=== PATIENT | female | born 2000 | race Caucasian/White ===

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

== ENCOUNTER → 2018-01-31 | Outpatient (CLI) | payer OTHER ==
[2018-01-31 14:59] LABS: HCT 40.2 % (34.0-46.0); MCH 31.2 pg (25.0-35.0); MCHC 34.8 g/dL (31.0-37.0); MCV 89.7 fL (80.0-100.0); Mean Platelet Volume 6.7; Platelet Count 260 k/uL (150-450); RBC 4.48 m/uL (3.80-5.40); RDW 12.7 % (11.5-15.5); WBC 8.6 k/uL (4.0-11.0)
[2018-01-31 15:17] LABS: ALT 30 U/L (9-52); AST 24 U/L (14-36); Albumin 4.7 g/dL (3.5-5.0); Alkaline Phosphatase 34 U/L (38-126); Amylase 57 U/L (30-110); Anion Gap 13 mmol/L; Blood Urea Nitrogen 9 mg/dL (7-17); Calcium 9.9 mg/dL (8.4-10.2); Carbon Dioxide 26 mmol/L (22-30); Chloride 103 mmol/L (98-107); Glucose 117 mg/dL (74-99); Lipase 89 U/L (23-300); Potassium 4.4 mmol/L (3.5-5.1); Sodium 142 mmol/L (137-145); Total Bilirubin 0.6 mg/dL (0.2-1.3); Total Protein 7.7 g/dL (6.3-8.2)
--- NOTE | 2018-01-31 15:37 | XR ---
EXAMINATION TYPE: XR abdomen 1V DATE OF EXAM: 01/31/2018 3:03 PM CLINICAL HISTORY: Lower abdominal pain and bloating TECHNIQUE: Single supine KUB image of the abdomen is obtained. COMPARISON: None. FINDINGS: Scattered gas is seen in nondilated small bowel loops. Gas and fecal material is seen in no ndilated colon. There is no visceromegaly, gross evidence of pneumoperitoneum, or abnormal calcificat ion appreciated. The lung bases are clear and the osseous structures are intact. IMPRESSION: Nonobstructive bowel gas pattern.
== END | disposition home or self-care (01) ==
LOC: LABWHC1 14:18
PROVIDERS: ATTEND Family Medicine
DX: R10.9 Unspecified abdominal pain (principal); R14.0 Abdominal distension (gaseous); R19.4 Change in bowel habit
CPT/HCPCS: 36415; 74018; 80053; 82150; 83690; 84443; 85027